=== PATIENT | male | born 2005 | race Caucasian/White ===

== ENCOUNTER 2023-03-26 13:05 | Emergency (ER) | payer SELFPAY ==
[2023-03-26] MEDS ORDERED: Albuterol/Ipratropium 3.0-0.5 MG/3 ML Neb Soln NEB ONE (13:30)
[2023-03-26] MEDS ORDERED: Ketorolac 30 MG/ML SDV IM ONE (15:06)
== END 2023-03-26 15:35 | disposition home or self-care (01) ==
LOC: MW.ED 13:05
DX: R06.2 Wheezing (principal); Z88.0 Allergy status to penicillin
CPT/HCPCS: 71045; 96372; 99285; J1885; 99283; J7620-GY